=== PATIENT | male | born 1995 | race Caucasian/White ===

== ENCOUNTER 2018-01-04 23:33 | Emergency (ER) | payer BC ==
[~2018-01-04] VITALS: Ht 175.3 cm; Wt 83.1 kg
[2018-01-05] MEDS ORDERED: ATARAX,VISTARIL25 MG PO (00:59)
[2018-01-05 01:26] VITALS: BP 140/88
== END 2018-01-05 01:27 | disposition home or self-care (01) ==
LOC: EME 23:33
DX: F43.0 Acute stress reaction (principal); F41.9 Anxiety disorder, unspecified; F32.9 Major depressive disorder, single episode, unspecified; F84.0 Autistic disorder; F43.10 Post-traumatic stress disorder, unspecified; Z82.49 Family history of ischemic heart disease and other diseases of the circulatory system
CPT/HCPCS: 93005; 99281; 99284; Q0177